=== PATIENT | female | born 1945 | race Caucasian/White ===

== ENCOUNTER 2020-01-02 11:38 | Outpatient (REF) | payer MEDICARE, SELFPAY ==
[2020-01-02 12:10] LABS: COVID-19 Test Negative (Negative)
== END 2020-01-02 11:39 | disposition home or self-care (01) ==
LOC: HO.LAB 11:38
PROVIDERS: Visit Provider Internal Medicine
DX: Z20.828 Contact with and (suspected) exposure to other viral communicable diseases (principal)
CPT/HCPCS: 87635